=== PATIENT | male | born 1960 ===

== ENCOUNTER 2016-12-27 08:13 | Emergency (ER) | payer OTHER ==
[2016-12-27 08:19] VITALS: PULSE 67
--- NOTE | 2016-12-27 08:22 | C.PDOC ---
History Of Present Illness 56 y/o male presents to ED with complaint of left flank pain, described as sharp , stabbing, 6/10, radiating to left groin. Patient also reports associated hematuria. Notes past history of kidney stones. Denies fever, chills, nausea, vomiting. Time Seen by Provider: 12/27/16 08:22 Chief Complaint (Nursing): Male Genitourinary History Per: Patient History/Exam Limitations: no limitations Onset/Duration Of Symptoms: Days Current Symptoms Are (Timing): Still Present Pain Scale Rating Of: 6 Quality Of Discomfort: Sharp, Stabbing, "Pain" Associated Symptoms: Back Pain, Urinary Symptoms. denies: Fever, Chills, Nausea , Vomiting Recent travel outside of the [place]: No Past Medical History Reviewed: Historical Data, Nursing Documentation, Vital Signs Vital Signs: Last Vital Signs Temp 97.6 F 12/27/16 11:06 Pulse 67 12/27/16 11:06 Resp 18 12/27/16 11:06 BP 109/73 12/27/16 11:06 Pulse Ox 99 12/27/16 11:15 - Medical History PMH: Kidney Stones Family History: States: No Known Family Hx Review Of Systems Constitutional: Negative for: Fever, Chills Respiratory: Negative for: Cough, Shortness of Breath, Wheezing Gastrointestinal: Positive for: Other (left flank pain). Negative for: Nausea, Vomiting Genitourinary: Positive for: Hematuria. Negative for: Scrotal Pain Musculoskeletal: Positive for: Back Pain Skin: Negative for: Rash Physical Exam - Physical Exam Appears: Non-toxic, No Acute Distress Skin: Warm, Dry Oral Mucosa: Moist Chest: Symmetrical Cardiovascular: Rhythm Regular Respiratory: No Rales, No Rhonchi, No Wheezing Gastrointestinal/Abdominal: Soft, Tenderness (left flank), No Guarding, No Rebound Back: CVA Tenderness (left) Male Genital: No Testicular Tenderness, No Testicular Swelling, No Inguinal Tenderness Extremity: Normal ROM, Capillary Refill (< 2 sec.) Neurological/Psych: Oriented x3, Normal Speech, Normal Cognition ED Course And Treatment - Laboratory Results Result Diagrams: 12/27/16 08:46 12/27/16 08:46 O2 Sat by Pulse Oximetry: 99 (RA) Pulse Ox Interpretation: Normal - CT Scan/US CT ABDOMEN/PELVIS Other Rad Studies (CT/US): Read By Radiologist, Radiology Report Reviewed CT/US Interpretation: IMPRESSION: Two 3 mm proximal left ureteral calculi with mild fullness of the proximal ureter. 4 mm right lower pulmonary nodule. In the absence of risk factors for lung cancer, no specific imaging follow-up is required. If the patient is a smoker or has other risk factors, follow-up CT at 12 months is recommended to document stability. Prominent retroperitoneal adenopathy measuring approximately cysts 14 mm in short axis. Thick-walled under distended urinary bladder. Recommend correlation with urinalysis. Progress Note: CT abdomen/pelvis, labs, UA. Pepcid, Toradol, Zofran, Flomax, IVFs given. Reevaluation Time: 11:20 Reassessment Condition: Improved Medical Decision Making Medical Decision Making: Upon provider reevaluation patient is feeling better, is medically stable, and requires no further treatment in the ED at this time. Patient will be discharged home with Rx for flomax, naproxena nd percocet . Counseling was provided and all questions were answered regarding diagnosis and need for follow up with dr zayas. There is agreement to discharge plan. Return if symptoms persist or worsen. Disposition Counseled Patient/Family Regarding: Studies Performed, Diagnosis, Need For Followup, Rx Given - Disposition Referrals: Rui Zayas MD [Staff Provider] - Disposition: HOME/ ROUTINE Disposition Time: 08:22 Condition: FAIR Additional Instructions: Please return if symptoms recur Prescriptions: Naproxen [Naprosyn] 1 tab PO BID PRN #25 tab PRN Reason: Pain Ondansetron ODT [Zofran ODT] 1 odt PO BID PRN #10 odt PRN Reason: Nausea/Vomiting oxyCODONE/Acetaminophen [Percocet 5/325 mg Tab] 1 tab PO TID #12 tab Tamsulosin [Flomax] 0.4 mg PO DAILY #15 cap Instructions: Renal Colic (GEN), Kidney Stones (DC) Forms: [facility] (German) - Clinical Impression Clinical Impression: Kidney stone on left side, Renal colic on left side - Scribe Statement The provider has reviewed the documentation as recorded by the Scribe SM All medical record entries made by the Scribe were at my direction and personally dictated by me. I have reviewed the chart and agree that the record accurately reflects my personal performance of the history, physical exam, medical decision making, and the department course for this patient. I have also personally directed, reviewed, and agree with the discharge instructions and disposition.
[2016-12-27] MEDS ORDERED: Sodium Chloride 0.9% 2,000 ML IV ONE (08:24)
[2016-12-27 08:55] LABS: BASO # 0.1 K/uL (0.0-0.2); EOS # 0.3 K/uL (0.0-0.7); EOS % 4.5 % (0.0-4.0); HEMATOCRIT 44.5 % (35.0-51.0); LYMPH # 3.1 K/uL (1.0-4.3); LYMPH % 42.8 % (20.0-40.0); MEAN CORPUSCULAR HEMOGLOBIN 31.9 pg (27.0-31.0); MEAN CORPUSCULAR HGB CONC 33.6 g/dL (33.0-37.0); MEAN PLATELET VOLUME 9.5 fL (7.2-11.7); MONO # 0.8 K/uL (0.0-0.8); MONO % 11.4 % (0.0-10.0); NRBC % 0.1 % (0.0-2.0); RED CELL DISTRIBUTION WIDTH 14.2 % (11.5-14.5); WHITE BLOOD COUNT 7.2 K/uL (4.8-10.8)
[2016-12-27] MEDS ORDERED: Sodium Chloride 0.9% 2,000 ML ONE (08:58)
[2016-12-27 09:03] LABS: CHLORIDE 103 mmol/L (98-107); SODIUM 137 mmol/L (132-148)
[2016-12-27 09:04] LABS: POTASSIUM 4.5 mmol/L (3.6-5.2); RBC URINE 5680 /hpf (0-3); URINE BILIRUBIN NEGATIVE (NEGATIVE); URINE BLOOD 3+ (NEGATIVE); URINE COLOR Red (YELLOW); URINE GLUCOSE (UA) NORMAL (Normal); URINE KETONE NEGATIVE (NEGATIVE); URINE LEUKOCYTE ESTERASE NEG Leu/uL (Negative); URINE PROTEIN 2+ mg/dL (NEGATIVE); WBC URINE 4 /hpf (0-5)
[2016-12-27 09:05] LABS: GFR AFRICAN-AMERICAN > 60
[2016-12-27 09:06] LABS: ALB/GLOB RATIO 1.3 (1.0-2.1); ALKALINE PHOSPHATASE 64 U/L (38-126); ALT/SGPT 30 U/L (21-72); AST/SGOT 26 U/L (17-59); BILIRUBIN,TOTAL 0.9 mg/dL (0.2-1.3); BLOOD UREA NITROGEN 22 mg/dL (9-20); CALCIUM 8.3 mg/dl (8.6-10.4); CARBON DIOXIDE 23 mmol/L (22-30); GLUCOSE,RANDOM 95 mg/dL (75-110); TOTAL PROTEIN 7.9 g/dL (6.3-8.3)
--- NOTE | 2016-12-27 10:45 | CT ---
PROCEDURE: CT Abdomen and Pelvis without Oral or IV contrast. HISTORY: left flank pain, hx of kidney stones COMPARISON: None available. TECHNIQUE: Contiguous axial images of the abdomen and pelvis. No oral or IV contrast administered. Coronal and Sagittal reformats generated and reviewed. Radiation dose: Total exam DLP = 1145.66 mGy-cm. This CT exam was performed using one or more of the following dose reduction techniques: Automated exposure control, adjustment of the mA and/or kV according to patient size, and/or use of iterative reconstruction technique. FINDINGS: There is limited evaluation of the solid organs without the administration of IV contrast. LOWER THORAX: No visible consolidation, pleural effusion, or pneumothorax. 4 mm right lower pulmonary nodule (series 5, image 3). LIVER: Unremarkable unenhanced appearance. GALLBLADDER AND BILE DUCTS: Unremarkable unenhanced appearance. PANCREAS: Unremarkable unenhanced appearance. SPLEEN: Punctate splenic calcifications, likely granulomas. ADRENALS: Unremarkable unenhanced appearance. KIDNEYS AND URETERS: There are two 3 mm proximal left ureteral calculi with mild fullness of the proximal ureter. Otherwise unremarkable unenhanced appearance of bilateral kidneys. BLADDER: Thick-walled under distended urinary bladder. REPRODUCTIVE: Unremarkable. APPENDIX: The appendix appears within normal limits of caliber. No secondary signs of acute appendicitis. BOWEL: The stomach is nondistended. Lack of oral contrast limits evaluation for bowel pathology. The bowel loops appear within normal limits of caliber without evidence of intestinal obstruction. PERITONEUM: No significant free fluid. No definite free air. LYMPH NODES: Prominent retroperitoneal adenopathy measuring approximately cysts 14 mm in short axis. VASCULATURE: No aortic aneurysm. BONES: No acute osseous abnormality is detected. OTHER FINDINGS: Tiny fat containing umbilical hernia. IMPRESSION: Two 3 mm proximal left ureteral calculi with mild fullness of the proximal ureter. 4 mm right lower pulmonary nodule. In the absence of risk factors for lung cancer, no specific imaging follow-up is required. If the patient is a smoker or has other risk factors, follow-up CT at 12 months is recommended to document stability. Prominent retroperitoneal adenopathy measuring approximately cysts 14 mm in short axis. Thick-walled under distended urinary bladder. Recommend correlation with urinalysis.
[2016-12-27 11:07] VITALS: BP 109/73; RESP 18; TEMP 97.6
[2016-12-27 11:15] VITALS: O2SAT 99
== END 2016-12-27 11:40 | disposition home or self-care (01) ==
LOC: C.ER 08:13
DX: N20.0 Calculus of kidney (principal); Z87.442 Personal history of urinary calculi
CPT/HCPCS: 74176; 80053; 81001; 83690; 85025; 96361; 96374; 96375; 99284; J1885; J2405; J7040